=== PATIENT | male | born 1950 | race Caucasian/White ===

== ENCOUNTER 2017-07-04 11:58 | Emergency (ER) | payer MEDICARE, MEDICAID ==
[~2017-07-04] VITALS: Ht 175.3 cm; Wt 73.5 kg
[2017-07-04 12:01] VITALS: BP 153/88
[2017-07-04] MEDS ORDERED: CLOPIDOGREL75 MG ORAL (12:11)
[2017-07-04] MEDS ORDERED: VITAMIN D1000 UNI1 ORAL (12:11)
[2017-07-04] MEDS ORDERED: XARELTO20 MG ORAL (12:11)
[2017-07-04] MEDS ORDERED: PANTOPRAZOLE SO40 MG ORAL (12:11)
[2017-07-04] MEDS ORDERED: ISOSORBIDE DINI10 M1 PO (12:11)
[2017-07-04] MEDS ORDERED: LIPITOR80 MG ORAL (12:11)
[2017-07-04 12:40] LABS: APPEARANCE,URINE SLIGHTLY CLOUDY; KETONES,URINE NEGATIVE (NEGATIVE); LEUKOCYTE ESTERASE ,URINE 1+ (NEGATIVE); NITRITE,URINE NEGATIVE (NEGATIVE); PH,URINE 5 (4.5-8.0); PROTEIN,URINE 1+ (NEGATIVE); UROBILINOGEN,URINE 1 MG/DL (0.0-1.0)
[2017-07-04 12:44] LABS: MEAN CORPUSCULAR HEMOGLOBIN 30.4 PG (27.0-31.0); MEAN CORPUSCULAR HGB CONC 32.7 G/DL (32.0-36.0); MEAN CORPUSCULAR VOLUME 93 FL (80-99); MEAN PLATELET VOLUME 7.2 FL (6.5-10.1); PLATELET COUNT 217 K/UL (150-450); RED BLOOD COUNT 5.05 M/UL (4.70-6.10); RED CELL DISTRIBUTION WIDTH 11.9 % (11.6-14.8); WHITE BLOOD COUNT 8.8 K/UL (4.8-10.8)
--- NOTE | 2017-07-04 12:49 | Emergency Room Report ---
History of Present Illness General Chief Complaint: Abdominal Pain Source: Patient Present Illness HPI 67-year-old male, 6 history of CAD on Plavix, history of recurrent pulmonary embolism on several to, p/w epigastric abdominal cramping for one week. Patient states pain started gradually, localized to epigastric area, non radiating, burning in nature, intermittent. . Severity is 5/10. States that he has felt this pain in the past, has had it a couple times throughout the last couple years, states that about a year ago she was on Protonix, daily, and it subsided the pain. Patient states that this feels similar to the last time Denies nvd. Denies fever, chills. No hx of endoscopies/colonoscopies. Allergies: Coded Allergies: No Known Allergies (Unverified , 07/04/17) Patient History Past Medical History: see triage record Past Surgical History: none Pertinent Family History: none Reviewed Nursing Documentation: PMH: Agreed, PSxH: Agreed Review of Systems All Other Systems: negative except mentioned in HPI Physical Exam Vital Signs Date Time Temp Pulse Resp B/P (MAP) Pulse Ox O2 Delivery O2 Flow Rate FiO2 07/04/17 12:01 97.9 115 19 153/88 100 Room Air Sp02 EP Interpretation: reviewed, normal General Appearance: normal inspection, well appearing, no apparent distress, alert, GCS 15, non-toxic Head: normocephalic, atraumatic Eyes: bilateral eye normal inspection, bilateral eye PERRL, bilateral eye EOMI ENT: normal ENT inspection, normal pharynx, normal voice, moist mucus membranes Neck: normal inspection, full range of motion, supple Respiratory: normal inspection, lungs clear, normal breath sounds, no respiratory distress, no retraction, no wheezing, speaking full sentences, chest symmetrical Cardiovascular #1: normal inspection, regular rate, rhythm, no edema, normal capillary refill Cardiovascular #2: 2+ radial (R), 2+ radial (L) Gastrointestinal: normal inspection, non tender, soft, non-distended, no guarding Genitourinary: no CVA tenderness Musculoskeletal: normal inspection, back normal, normal range of motion, non- tender Neurologic: normal inspection, alert, oriented x3, responsive, motor strength/ tone normal, sensory intact, normal gait, speech normal Psychiatric: normal inspection, judgement/insight normal, memory normal Skin: normal inspection, normal color, no rash, warm/dry, well hydrated, normal turgor Medical Decision Making Diagnostic Impression: Primary Impression: Epigastric abdominal pain ER Course 67-year-old male with abdominal cramping for 4-5 days Differential Diagnosis: Gastritis, gastroenteritis, cholecystitis, appendicitis, diverticulitis, UTI/ pyelo At this time abdomen is soft nontender, not likely to have acute intra- abdominal surgical pathology, will hold CT for now. Plan: Basic labs, ua, ekg Pepcid, maalox, pain control, IVF ER course: Patient has remained stable during ED stay. I spoke to patient's cardiac surgeon Patient has had chronic intermittent abdominal pain, wants to perform endoscopy and colonoscopy on patient, however patient is on Zaroxolyn Plavix, is requesting a CT abdomen pelvis as well as gallbladder ultrasound before doing so so that he can be scoped next week Signed out patient of Dr. Larkin 67-year-old male, intermittent epigastric pain -Pending labs -Pending gallbladder ultrasound -Pending CT abdo pelvis Please note that this Emergency Department Report was dictated using [employer] war[employer] technology software, occasionally this can lead to erroneous entry secondary to interpretation by the dictation equipment Last Vital Signs Date Time Temp Pulse Resp B/P (MAP) Pulse Ox O2 Delivery O2 Flow Rate FiO2 07/04/17 12:01 97.9 115 19 153/88 100 Room Air Scripts Famotidine (PEPCID) 40 Mg Tablet 40 MG PO DAILY, #7 TAB 0 Refills Prov: Antwon Sandoval M.D. 07/04/17 Antwon Sandoval M.D. Jul 04, 2017 12:49
[2017-07-04] MEDS ORDERED: PEPCID40 MG PO (12:53)
[2017-07-04] MEDS ORDERED: Dicyclomine HCl 10mg/5ml oral soln ORAL ONE (13:00)
[2017-07-04] MEDS ORDERED: Lidocaine 2% Visc 15ml soln ORAL ONE (13:00)
[2017-07-04] MEDS ORDERED: Mylanta II UD 30ml ORAL ONE (13:00)
[2017-07-04 13:06] LABS: BAND NEUTROPHILS % (MANUAL) 0 % (0-8); BASOPHILS % (MANUAL) 0 % (0-2); EOSINOPHILS % (MANUAL) 1 % (0-3); LYMPHOCYTES % (MANUAL) 12 % (20-45); NEUTROPHILS % (MANUAL) 85 % (45-75); PLATELET ESTIMATE ADEQUATE; PLATELET MORPHOLOGY NORMAL; TOTAL CELLS COUNTED 100
[2017-07-04 13:08] LABS: BACTERIA,URINE OCCASIONAL /HPF; SQUAMOUS EPITHELIAL CELL,UR OCCASIONAL /LPF (NONE/OCC)
[2017-07-04 13:08] LABS: CHLORIDE 104 MMOL/L (98-107); POTASSIUM 3.6 MMOL/L (3.5-5.1); SODIUM 142 MMOL/L (136-145)
[2017-07-04 13:09] LABS: MUCUS,URINE FEW /LPF (NONE/OCC)
[2017-07-04 13:16] LABS: ANION GAP 8 mmol/L (5-15); CALCIUM 8.3 MG/DL (8.5-10.1); CARBON DIOXIDE 30 MMOL/L (21-32); CREATININE 1.4 MG/DL (0.55-1.30); GLOMERULAR FILTRATION RATE 50.4 mL/min (>60)
[2017-07-04 13:20] LABS: ALANINE AMINOTRANSFERASE 16 U/L (12-78); ASPARTATE AMINO TRANSFERASE 15 U/L (15-37); LIPASE 120 U/L (73-393); TOTAL PROTEIN 8.3 G/DL (6.4-8.2)
[2017-07-04] MEDS ORDERED: BENTYL10 MG ORAL (17:30)
[2017-07-04] MEDS ORDERED: Norco 5mg/325mg tab ORAL ONE (17:30)
[2017-07-04] MEDS ORDERED: NORCO 5-325 TA1 EACH ORAL (17:31)
[2017-07-04 18:00] VITALS: BP 144/80
--- NOTE | 2017-07-05 12:16 | Diagnostic Imaging Report ---
Indication: Abdominal pain Technique: US ABD limited Comparison: None. Findings: Imaged portions of the pancreatic head are unremarkable in appearance. The body and tail are not seen. Liver measures 15 cm in length. Echogenicity is within normal limits. No focal hepatic liver lesion is appreciated sonographically. Hepatic contour is smooth. Portal vein is patent with normal direction of flow. Multiple gallstones are noted within the gallbladder. There is no abnormal gallbladder wall thickening. No pericholecystic fluid is seen. Sonographic Dominguez's reported as negative. No intrahepatic or extra hepatic biliary ductal dilatation. Common bile duct measures 2.9 mm. Kidney demonstrates normal parenchymal thickness and echogenicity . A 3 cm simple renal cyst is noted in the lower pole the right kidney. No evidence of hydronephrosis. Left kidney and spleen not imaged. Impression: Cholelithiasis without evidence to suggest acute cholecystitis. Left kidney and spleen not imaged.
--- NOTE | 2017-07-05 12:40 | Diagnostic Imaging Report ---
Indication: Abdominal pain Technique: CT of the abdomen and pelvis utilizing automated exposure control with intravenous contrast. Venous scanning performed. CT dose: Total DLP 692.69 mGycm; CTDI vol 12.94 mGy Comparison: None Findings: Mild dependent atelectatic changes noted in the bilateral lower lobes. Heart is mildly enlarged. There is no pericardial effusion. Some pericardial calcification is seen, possibly sequela of prior infection or trauma. Subcentimeter hypodensities in the liver are too small to fully characterize but may represent simple hepatic cysts or biliary hamartomas. There is cholelithiasis without CT evidence to suggest an acute cholecystitis. Spleen, adrenal glands and pancreas are grossly unremarkable in appearance. Bilateral simple renal cysts in the lower poles of the kidneys. There is a punctate nonobstructing stone in the left lower pole. No hydronephrosis bilaterally. Apparent bladder wall thickening versus underdistention. Prostate is mildly enlarged with coarse central calcifications. There is no evidence of bowel obstruction. There is thickening versus underdistention involving the transverse and left colon. No pericolonic inflammatory changes are seen. No free intraperitoneal fluid or air. Appendix is not definitively visualized however there is no focal inflammatory change in the right lower quadrant to suggest acute appendicitis. Abdominal aorta is normal in caliber with scattered atherosclerotic calcifications. No bulky abdominal pelvic lymphadenopathy is seen. Some small mesenteric lymph nodes are noted, none of which are pathologically enlarged by imaging size criteria. Multilevel degenerative changes are seen in the spine. No acute osseous abnormality is noted. There is an status post median sternotomy. Impression: Cholelithiasis without CT evidence to suggest acute cholecystitis. Underdistention versus thickening of the transverse and left colon. No pericolonic inflammatory change seen. No bowel obstruction. Clinical correlation recommended. Apparent thickening of the bladder wall versus underdistention. Correlate with urinalysis to exclude cystitis. Hypodensities in the liver too small to fully characterize but may represent simple cysts versus biliary hamartomas. Simple renal cysts. Nonobstructing stone in the left kidney. No hydronephrosis. Prostatomegaly. Cardiomegaly. Question small pericardial calcifications. These may be sequela of prior inflammation or infection. The CT scanner at [facility] is accredited by the [employer] and the scans are performed using protocols designed to limit radiation exposure to as low as reasonably achievable to attain images of sufficient resolution adequate for diagnostic evaluation.
--- NOTE | 2017-07-05 14:55 | Cardiology Report ---
APPROVED REPORT EKG Measurement Heart [id number] Normal sinus rhythm Right bundle branch block Inferior infarct, age undetermined Anterolateral infarct, age undetermined Abnormal ECG
== END 2017-07-04 18:05 | disposition home or self-care (01) ==
LOC: EMR 14:10
DX: R10.13 Epigastric pain (principal); I25.10 Atherosclerotic heart disease of native coronary artery without angina pectoris; Z86.711 Personal history of pulmonary embolism; Z79.02 Long term (current) use of antithrombotics/antiplatelets; K80.20 Calculus of gallbladder without cholecystitis without obstruction; N28.1 Cyst of kidney, acquired; N20.0 Calculus of kidney
CPT/HCPCS: 36415; 74177; 76705; 80053; 81003; 83690; 84484; 85007; 85025; 93005; 96361; 96374; 96375; 99284; J2405; Q9967; S0028